=== PATIENT | female | born 1980 | race Caucasian/White ===

== ENCOUNTER 2019-04-21 06:16 | Day surgery (SDC) | payer BC ==
[2019-04-20 11:38] LABS: BASOPHILS # (AUTO) 0.1 X10'3 (0-0.2); BASOPHILS % (AUTO) 1.1 % (0-1); EOSINOPHILS # (AUTO) 0.1 X10'3 (0-0.9); EOSINOPHILS % (AUTO) 1.2 % (0-6); LYMPHOCYTES # (AUTO) 1.2 X10'3 (1.1-4.8); LYMPHOCYTES % (AUTO) 20.9 % (21-51); MEAN CORPUSCULAR HEMOGLOBIN 31.9 PG (27.0-31.0); MEAN CORPUSCULAR HGB CONC 34.2 g/dL (33.0-36.5); MEAN CORPUSCULAR VOLUME 93.3 FL (78-98); MEAN PLATELET VOLUME 7.2 FL (7.4-10.4); MONOCYTES # (AUTO) 0.4 X10'3 (0-0.9); MONOCYTES % (AUTO) 6.4 % (2-12); NEUTROPHILS # (AUTO) 4.2 X10'3 (1.8-7.7); NEUTROPHILS % (AUTO) 70.4 % (42-75); PRE OP HEMATOCRIT 39.7 % (35.0-45.0); PRE OP HEMOGLOBIN 13.6 g/dL (12.0-16.0); PRE OP PLATELET COUNT 314 X10'3 (140-440); RED BLOOD COUNT 4.25 X10'6 (4.20-5.60); RED CELL DISTRIBUTION WIDTH 11.8 % (11.5-14.5)
[2019-04-20 11:49] LABS: ALBUMIN 3.9 G/DL (3.4-5.0); ALKALINE PHOSPHATASE 52 IU/L (46-116); BLOOD UREA NITROGEN 8 MG/DL (7-18); BUN/CREATININE RATIO 10.1 (6.6-38.0); CALCIUM 8.9 MG/DL (8.5-10.1); CHLORIDE 106 MMOL/L (99-107); CREATININE 0.79 MG/DL (0.40-0.90); PRE OP ALT 17 U/L (30-65); PRE OP ANION GAP 8 (8-16); PRE OP AST 14 U/L (10-37); PRE OP BILIRUB, TOTAL 0.3 MG/DL (0.0-1.0); PRE OP GLUCOSE 96 MG/DL (70-104); PRE OP POTASSIUM 3.6 MMOL/L (3.4-5.1); PRE OP SODIUM 141 MMOL/L (135-145); TOTAL CARBON DIOXIDE 26.8 MMOL/L (24-32); TOTAL PROTEIN 7.7 G/DL (6.4-8.2); eGFR 81 ML/MIN
[2019-04-20 12:03] LABS: HCG SERUM QL NEGATIVE
[~2019-04-21] VITALS: Ht 162.6 cm; Wt 64.0 kg
[2019-04-21] VITALS (8 sets, daily range): BP systolic 110–131; BP diastolic 65–82
[~2019-04-21 06:16] MED LIST: BIRTH CONTROL; cefazolin/dext.iso 2gm/100ml 100 ML IV ONE; famotidine 20mg tablet PO ONE; ringers solution, lacted 1,000 ML IV SCH
[2019-04-21] MEDS ORDERED: BUPIVAcaine/PF 2.5mg/ml (0.25%) 10ml vial ONE (06:42)
[2019-04-21] MEDS ORDERED: LIDOcaine 1% (10mg/ml) 2ml vial ONE (06:55)
[2019-04-21] MEDS ORDERED: epiNEPHrine 1 mg/ml inj ONE (07:15)
[2019-04-21] MEDS ORDERED: morphine 4 MG/ML inj SYRINge IV PRN ×2 (07:45)
[2019-04-21] MEDS ORDERED: ringers solution, lacted 1,000 ML IV SCH (07:45)
[2019-04-21] MEDS ORDERED: ondansetron/PF 4mg/2ml inj IV PRN (07:45)
[2019-04-21] MEDS ORDERED: proCHLORperazine 10 MG/2 ml inj IV PRN (07:45)
[2019-04-21] MEDS ORDERED: meperidine/PF 25mg/ml syringe IV PRN ×3 (07:45)
[2019-04-21] MEDS ORDERED: sevoflurane 250ml liquid IH ONE (08:02)
[2019-04-21] MEDS ORDERED: fentaNYL/PF 50MCG/1 ML 2ML syringe ONE (08:03)
[2019-04-21] MEDS ORDERED: midazolam 2 mg/2 ml injection ONE (08:03)
[2019-04-21] MEDS ORDERED: propofol inj 20 ML IV ONE (08:04)
[2019-04-21] MEDS ORDERED: rocuronium 10mg/ml inj IV ONE (08:12)
[2019-04-21] MEDS ORDERED: dexamethasone sod phosphate 4mg/ml inj. ONE (08:14)
[2019-04-21] MEDS ORDERED: ondansetron/PF 4mg/2ml inj ONE (08:28)
[2019-04-21] MEDS ORDERED: ketorolac trometh. 30mg/ml inj. ONE (08:29)
[2019-04-21] MEDS ORDERED: glycopyrrolate 0.2mg/ml inj ONE (08:29)
[2019-04-21] MEDS ORDERED: neostigmine methylsulfate 1 MG/ML 10ml vial ONE (08:29)
--- NOTE | 2019-04-21 08:41 | NUR ---
Received from OR via , accompanied by Anesthesiologist YOGI and report given by Anesthesiolgist. AWAKE IN NO RESP DISTRESS SKIN WARM AND DRY HOB ELEVATED ABD SOFT NO CO PAIN.
--- NOTE | 2019-04-21 09:51 | NUR ---
AWAKE VS WNL NO CO PAIN, DSG DI, ABD SOFT. DISCH INSTR GIVEN TO PT AND UNDERSTOOD. VOIDED, TOLERATED LIQUIDS. HOME WITH
== END 2019-04-21 09:51 | disposition home or self-care (01) ==
LOC: PAS 06:16
PROVIDERS: ATTEND Obstetrics & Gynecology
DX: Z30.2 Encounter for sterilization (principal); N99.4 Postprocedural pelvic peritoneal adhesions; Z98.890 Other specified postprocedural states; Z79.899 Other long term (current) drug therapy
CPT/HCPCS: 36415; 58670; 80053; 82948; 84703; 85025; A6258; J0171; J1100; J1885; J2001; J2250; J2405; J2704; J2710; J3010; J3490; J7120; A4618; A6402; A7000